=== PATIENT | male | born 1970 | race Caucasian/White ===

== ENCOUNTER 2022-03-04 13:04 | Emergency (ER) | payer OTHER ==
[~2022-03-04] VITALS: Ht 182.9 cm; Wt 90.0 kg
[2022-03-04 13:10] VITALS: BP 122/88
[2022-03-04] MEDS ORDERED: CEPHALEXIN500 M1 PO (15:34)
[2022-03-04 15:40] VITALS: BP 122/88
[2022-03-04] MEDS ORDERED: AMOX/K CLAV875 M1 PO (18:27)
== END 2022-03-04 15:51 | disposition home or self-care (01) | DRG 605 ==
LOC: ED 13:04
PROC: 0HQ1XZZ Repair Face Skin, External Approach (ICD-10-PCS; principal; 2022-03-04)
DX: S01.81XA Laceration without foreign body of other part of head, initial encounter (principal); W01.198A Fall on same level from slipping, tripping and stumbling with subsequent striking against other object, initial encounter

== ENCOUNTER 2022-03-04 17:40 | Emergency (ER) | payer OTHER ==
[~2022-03-04] VITALS: Ht 182.9 cm; Wt 100.0 kg
[~2022-03-04 17:40] MED LIST: CEPHALEXIN500 M1 PO
[2022-03-04 17:49] VITALS: BP 138/90
[2022-03-04 18:00] VITALS: BP 134/85
[2022-03-04] MEDS ORDERED: AMOX/K CLAV875 M1 PO (18:27)
[2022-03-04 18:30] VITALS: BP 130/88
[2022-03-04 18:32] VITALS: BP 130/88
== END 2022-03-04 18:36 | disposition home or self-care (01) | DRG 159 ==
LOC: ED 17:40
DX: S02.609A Fracture of mandible, unspecified, initial encounter for closed fracture (principal); Y35.893A Legal intervention involving other specified means, suspect injured, initial encounter